=== PATIENT | female | born 1985 | race Caucasian/White ===

== ENCOUNTER → 2018-06-17 | Outpatient (CLI) | payer BC | LOC: COL.RAD 06:56 | DX: K90.9 Intestinal malabsorption, unspecified (principal); R10.11 Right upper quadrant pain | CPT/HCPCS: A9537 ==

== ENCOUNTER 2018-08-05 06:02 | Day surgery (SDC) | payer BC ==
[~2018-08-05] VITALS: Ht 162.6 cm; Wt 57.0 kg
[2018-08-05 06:31] VITALS: BP 107/78; PULSE 66; TEMP 97.6
[2018-08-05] MEDS ORDERED: SYNTHROID0.088 MG/T PO (06:46)
[2018-08-05] MEDS ORDERED: VENTOLIN0.09 MG IH (06:47)
[2018-08-05] MEDS ORDERED: VITAMIN D32000 IU PO (06:48)
[2018-08-05 07:45] VITALS: BP 107/69; PULSE 55; TEMP 97.8
--- NOTE | 2018-08-05 07:45 | NUR ---
PT TO [facility]AY 1 VIA CART FROM [facility] ROOM, WALKED TO CHAIR, ALERT GAIT STEADY. BOYFRIEND NOW IN ROOM, CALL LIGHT IN REACH, SIPS ON WATER
[2018-08-05 08:00] VITALS: BP 103/69; PULSE 54
[2018-08-05 08:15] VITALS: BP 100/60; PULSE 58
--- NOTE | 2018-08-05 08:15 | NUR ---
INTO SEE PT, INT D'CD INTACT, REVIEWED DISCHARGE INST. WITH PT AND BOYFRIEND, WITH VERBAL UNDERSTANDING. REVIEWED MEDICATION RECOMMENDATION FROM [facility]
--- NOTE | 2018-08-05 08:30 | NUR ---
PT DRESSED, UP IN ROOM, DISCHARGED VIA W/C TO CAR WITH FRIEND
== END 2018-08-05 08:30 | disposition home or self-care (01) ==
LOC: SDCO 06:02
DX: K59.00 Constipation, unspecified (principal); R19.7 Diarrhea, unspecified; R10.13 Epigastric pain; Z88.1 Allergy status to other antibiotic agents; F41.9 Anxiety disorder, unspecified; J45.909 Unspecified asthma, uncomplicated
CPT/HCPCS: OP; J2250; J2405; J3010; J7030